=== PATIENT | male | born 1985 | race Caucasian/White ===

== ENCOUNTER 2019-05-25 08:21 | Emergency (ER) | payer OTHER ==
[~2019-05-25] VITALS: Ht 175.3 cm; Wt 118.2 kg
[~2019-05-25 08:21] MED LIST: BACTDS PO; CEPH-443 PO; CLOT30CR24 TOP; FLUC150T PO; IBUP-1542 PO; KETO15CR TOP
[2019-05-25 08:23] VITALS: Ht 175.3 cm; Wt 118.2 kg
[2019-05-25] MEDS ORDERED: IBUPROFEN 600 MG TAB PO ONE (09:00)
[2019-05-25] MEDS ORDERED: HYDROCODONE/APAP (5/325) TAB PO ONE (09:00)
[2019-05-25 10:00] VITALS: BP 137/75; PULSE 78; RESP 20
== END 2019-05-25 10:00 | disposition home or self-care (01) ==
LOC: FTE 08:21
DX: S89.92XA Unspecified injury of left lower leg, initial encounter (principal); X58.XXXA Exposure to other specified factors, initial encounter; Y92.9 Unspecified place or not applicable
CPT/HCPCS: 73562